=== PATIENT | male | born 1990 | race African-American/Black ===

== ENCOUNTER 2024-02-06 08:25 | Emergency (ER) | payer BC, OTHER ==
[~2024-02-06] VITALS: Ht 170.2 cm; Wt 100.0 kg
[2024-02-06] MEDS: KETOROLAC TROMETH 60MG/2ML VIAL IM ONE (09:58)
[2024-02-06] MEDS: ONDANSETRON ODT 4 MG TAB PO ONE (10:00)
[2024-02-06] MEDS: MORPHINE SULFATE 4 MG/ML SYR/VIAL IM ONE (10:00)
[2024-02-06 10:16] VITALS: O2SAT 98
[2024-02-06 11:05] VITALS: BP 137/88; PULSE 82; RESP 16
== END 2024-02-06 11:20 | disposition home or self-care (01) ==
LOC: ER 08:25
DX: S82.492A Other fracture of shaft of left fibula, initial encounter for closed fracture (principal); X58.XXXA Exposure to other specified factors, initial encounter; Y93.89 Activity, other specified; Y92.89 Other specified places as the place of occurrence of the external cause; Y99.8 Other external cause status
CPT/HCPCS: 29515; 73590; 73610; 96372; 99284; J1885; J2270; Q0162